=== PATIENT | female | born 1990 | race African-American/Black ===

== ENCOUNTER 2023-04-17 09:57 | Emergency (ER) | payer OTHER ==
[2023-04-17] MEDS ORDERED: KETOROLAC 30 MG/ML INJ ONE (10:27)
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
--- NOTE | 2023-04-17 11:12 | RAD REPORT ---
EXAM DESCRIPTION: US - UPPER EXTREMITY VENOUS UNILATE - 04/17/2023 10:48 am CLINICAL HISTORY: swelling, pain Arm pain and swelling. COMPARISON: No comparisons FINDINGS: Right upper extremity venous system was interrogated with Doppler technique. Normal flow, compressibility and augmentation was noted. There is no DVT present. IMPRESSION: No evidence of right upper extremity deep venous thrombosis.
--- NOTE | 2023-04-17 11:16 | RAD REPORT ---
EXAM DESCRIPTION: RAD - Forearm Right - 04/17/2023 10:57 am CLINICAL HISTORY: arm pain COMPARISON: No comparisons FINDINGS: No fracture or dislocation is seen. No aggressive bone lesion.
--- NOTE | 2023-04-17 12:09 | ER ---
Nurse's Notes [facility] Name: Judith Heller Age: 32 yrs Sex: Female : 1990 Arrival Date: 04/17/2023 Time: 09:57 Bed 18 Private MD: Diagnosis: Strain of unspecified muscles, fascia and tendons at forearm level, right arm, initial encounter Presentation: 04/17 10:13 Chief complaint: Patient states: R forearm/ elbow pain that has been ongoing for weeks ss after lifting heavy objects at work. Pt states that it only hurts when she flexes her fingers. Coronavirus screen: Client denies travel out of the [place] in the last 14 days. Ebola Screen: Patient denies exposure to infectious person. Patient denies travel to an Ebola-affected area in the 21 days before illness onset. Initial Sepsis Screen: Does the patient meet any 2 criteria? No. Patient's initial sepsis screen is negative. Does the patient have a suspected source of infection? No. Patient's initial sepsis screen is negative. Risk Assessment: Do you want to hurt yourself or someone else? Patient reports no desire to harm self or others. Onset of symptoms is unknown. 10:13 Method Of Arrival: Ambulatory ss 10:13 Acuity: FABIENNE 4 ss Historical: - Allergies: 10:14 No Known Allergies; ss - Home Meds: 10:14 Nexplanon R upper arm [Active]; ss - PMHx: 10:14 None; ss - PSHx: 10:14 hernia repair; ss - Immunization history:: Client reports having NOT received the Covid vaccine. - Social history:: Smoking status: Reported history of juuling and/or vaping. Screenin:16 [facility] ED Fall Risk Assessment (Adult) History of falling in the last 3 months, ld1 including since admission No falls in past 3 months (0 pts). Abuse screen: Denies threats or abuse. Denies injuries from another. Nutritional screening: No deficits noted. Nutritional screening: No deficits noted. Tuberculosis screening: No symptoms or risk factors identified. Assessment: 10:16 General: Appears in no apparent distress. comfortable, Behavior is calm, cooperative, ld1 appropriate for age. Pain: Denies pain. Neuro: Level of Consciousness is awake, alert, obeys commands, Oriented to person, place, time, situation. Cardiovascular: Capillary refill < 3 seconds Patient's skin is warm and dry. Respiratory: Airway is patent Respiratory effort is even, unlabored. GI: Abdomen is flat, non-distended. : No signs and/or symptoms were reported regarding the genitourinary system. EENT: No signs and/or symptoms were reported regarding the EENT system. Derm: No signs and/or symptoms reported regarding the dermatologic system. Musculoskeletal: No signs and/or symptoms reported regarding the musculoskeletal system. 12:14 Reassessment: Patient appears in no apparent distress at this time. No changes from ld1 previously documented assessment. Patient and/or family updated on plan of care and expected duration. Pain level reassessed. Patient is alert, oriented x 3, equal unlabored respirations, skin warm/dry/pink. Vital Signs: 10:13 BP 121 / 62; Pulse 76; Resp 14; Temp 98.9(TE); Pulse Ox 100% on R/A; Weight 63.5 kg; ss Height 5 ft. 6 in. ; Pain 6/10; 10:16 BP 121 / 62; Pulse 91; Resp 18; Pulse Ox 100% on R/A; ld1 11:08 BP 121 / 62; Pulse 86; Resp 18; Pulse Ox 99% on R/A; ld1 12:14 BP 126 / 71; Pulse 81; Resp 18; Pulse Ox 99% on R/A; Pain 3/10; ld1 10:13 Body Mass Index 22.60 (63.50 kg, 167.64 cm) ss 10:13 Pain Scale: Adult ss 12:14 Pain Scale: Adult ld1 ED Course: 10:00 Patient arrived in ED. rg4 10:01 Shaquille Almanza PA is PHCP. jmm 10:01 Agus Anand MD is Attending Physician. jmm 10:14 Triage completed. ss 10:14 Arm band placed on right wrist. ss 10:16 Cecile Heaton, TILA is Primary Nurse. ld1 10:16 Patient has correct armband on for positive identification. Placed in gown. Bed in low ld1 position. Call light in reach. Side rails up X2. radiation monitor on. Pulse ox on. NIBP on. Door closed. Noise minimized. Warm blanket given. 10:16 No provider procedures requiring assistance completed. ld1 10:50 UPPER EXTREMITY VENOUS UNILATE In Process Unspecified. EDMS 10:59 Forearm Right XRAY In Process Unspecified. EDMS 12:07 Alessandro Holland MD is Referral Physician. jm 12:15 Patient did not have IV access during this emergency room visit. ld1 Administered Medications: 11:07 Drug: Ketorolac IM 30 mg Route: IM; Site: right deltoid; ld1 Medication: 10:16 VIS not applicable for this client. ld1 Outcome: 12:08 Discharge ordered by . jm 12:15 Discharged to home ambulatory, with family. ld1 12:15 Condition: stable 12:15 Discharge instructions given to patient, family, Instructed on discharge instructions, follow up and referral plans. medication usage, Demonstrated understanding of instructions, follow-up care, medications, Prescriptions given X 2. 12:15 Patient left the ED. ld1 Signatures: Dispatcher [employer] EDMS Shaquille Almanza PA PA jmm Blanchard, Shelby, Kathleen Castrejon RN rg4 Cecile Heaton RN RN ld1
--- NOTE | 2023-04-17 12:09 | EDPHYS ---
Physician Documentation [facility] Name: Judith Heller Age: 32 yrs Sex: Female : 1990 Arrival Date: 04/17/2023 Time: 09:57 Bed 18 Private MD: ED Physician Agus Anand HPI: 04/17 10:14 This 32 yrs old Black Female presents to ER via Ambulatory with complaints of Arm Pain. jmm 10:14 The patient or guardian complains of pain, that is acute. The complaints affect the jmm dorsal aspect of right forearm and palmar aspect of right forearm. This is a 32 year old female with no chronic medical conditions that presents to the ED with complaints of right forearm pain beginning after lifting a couch 3 weeks ago. Patient complains of ongoing pain worsening with flexing hand. . Historical: - Allergies: 10:14 No Known Allergies; ss - Home Meds: 10:14 Nexplanon R upper arm [Active]; ss - PMHx: 10:14 None; ss - PSHx: 10:14 hernia repair; ss - Immunization history:: Client reports having NOT received the Covid vaccine. - Social history:: Smoking status: Reported history of juuling and/or vaping. ROS: 10:14 Constitutional: Negative for fever, chills, and weight loss, Cardiovascular: Negative jmm for chest pain, palpitations, and edema, Respiratory: Negative for shortness of breath, cough, wheezing, and pleuritic chest pain. 10:14 MS/extremity: Positive for pain. 10:14 All other systems are negative. Exam: 10:14 Constitutional: This is a well developed, well nourished patient who is awake, alert, jmm and in no acute distress. Head/Face: atraumatic. Eyes: EOMI, no conjunctival erythema appreciated ENT: Moist Mucus Membranes Neck: Trachea midline, Supple Chest/axilla: Normal chest wall appearance and motion. Cardiovascular: Regular rate and rhythm. No edema appreciated Respiratory: Normal respirations, no respiratory distress appreciated Abdomen/GI: Non distended Back: Normal ROM Skin: General appearance color normal 10:14 Musculoskeletal/extremity: dorsum of the right forearm diffusely ttp, from appreciated to the elbow and wrist, full wild animal caretaker strength, full radial pulse, NVI. 10:14 Skin: Appearance: Color: normal in color. 10:14 Neuro: Orientation: is normal, Mentation: is normal, Memory: is normal. 10:14 Psych: Behavior/mood is pleasant, cooperative. Vital Signs: 10:13 BP 121 / 62; Pulse 76; Resp 14; Temp 98.9(TE); Pulse Ox 100% on R/A; Weight 63.5 kg; ss Height 5 ft. 6 in. ; Pain 6/10; 10:16 BP 121 / 62; Pulse 91; Resp 18; Pulse Ox 100% on R/A; ld1 11:08 BP 121 / 62; Pulse 86; Resp 18; Pulse Ox 99% on R/A; ld1 12:14 BP 126 / 71; Pulse 81; Resp 18; Pulse Ox 99% on R/A; Pain 3/10; ld1 10:13 Body Mass Index 22.60 (63.50 kg, 167.64 cm) ss 10:13 Pain Scale: Adult ss 12:14 Pain Scale: Adult ld1 MDM: 10:14 Patient medically screened. [facility] 12:06 Differential diagnosis: strain, hematoma, dvt. Data reviewed: vital signs, nurses [facility] notes, radiologic studies, plain films, ultrasound. I considered the following discharge prescriptions or medication management in the emergency department Medications were administered in the Emergency Department. See MAR. Counseling: I had a detailed discussion with the patient and/or guardian regarding: the historical points, exam findings, and any diagnostic results supporting the discharge/admit diagnosis, radiology results, the need for outpatient follow up, to return to the emergency department if symptoms worsen or persist or if there are any questions or concerns that arise at home. ED course: Imaging studies negative. Patient advised to follow up with orthopedics and otherwise given strict return precautions. patient understood and agrees with the plan of care. . 04/17 10:16 Order name: Forearm Right XRAY; Complete Time: 11:17 [facility] 04/17 10:42 Order name: UPPER EXTREMITY VENOUS UNILATE; Complete Time: 11:13 EDMS Administered Medications: 11:07 Drug: Ketorolac IM 30 mg Route: IM; Site: right deltoid; ld1 Disposition Summary: 04/17/23 12:08 Discharge Ordered Location: Home [facility] Condition: Stable [facility] Diagnosis - Strain of unspecified muscles, fascia and tendons at forearm level, right arm, jmm initial encounter Followup: [facility] - With: Alessandro Holland MD - When: 2 - 3 days - Reason: Recheck today's complaints, Continuance of care, Re-evaluation by your physician Discharge Instructions: - Discharge Summary Sheet jm - Muscle Strain [facility] Forms: - Work release form jmm - Medication Reconciliation Form angella - Thank You Letter angella - Antibiotic Education angella - Prescription Opioid Use [facility] - [email or web address] [facility] Prescriptions: - Diclofenac Sodium 75 mg Oral Tablet Sustained Release - take 1 tablet by ORAL route 2 times per day; 30 tablet; Refills: 0, Product [facility] Selection Permitted - orphenadrine citrate 100 mg Oral Tablet Sustained Release - take 1 tablet by ORAL route 2 times per day As needed; 20 tablet; Refills: 0, [facility] Product Selection Permitted Signatures: Dispatcher [employer] EDMS Shaquille Almanza PA PA jmm Blanchard, Shelby, RN RN ss Cecile Heaton RN RN ld1 Corrections: (The following items were deleted from the chart) 10:42 10:17 Extremity Venous Uni [email or web address] ordered. EDNM EDMS
[2023-04-17 12:35] VITALS: TEMP 98.9
[2023-04-17 12:39] VITALS: O2SAT 99
[2023-04-17 12:41] VITALS: BP 126/71
== END 2023-04-17 12:15 | disposition home or self-care (01) ==
LOC: ER 09:57
DX: S56.911A Strain of unspecified muscles, fascia and tendons at forearm level, right arm, initial encounter (principal)
CPT/HCPCS: 93971